=== PATIENT | male | born 1995 | race Caucasian/White ===

== ENCOUNTER 2018-03-18 09:41 | Day surgery (SDC) | payer OTHER ==
[~2018-03-18 09:41] MED LIST: SUCCINYLCHOLINE CHLORIDE 100 MG/5 ML SYG IV
[2018-03-18] MEDS ORDERED: MIDAZOLAM 1 MG/ML 2 ML INJ (12:27)
[2018-03-18] MEDS ORDERED: PROPOFOL 20 ML ×2 (12:27→13:20)
[2018-03-18] MEDS ORDERED: ROPIVACAINE 0.2% 20 ML VIAL (12:27)
[2018-03-18] MEDS ORDERED: ROCURONIUM 50 MG INJ ×2 (12:27→13:20)
[2018-03-18] MEDS ORDERED: FENTAnyl 50 MCG/ML VIAL (12:27)
[2018-03-18] MEDS ORDERED: KETOROLAC 30 MG INJ (12:30)
[2018-03-18] MEDS ORDERED: METOCLOPRAMIDE 10 MG INJ (12:30)
[2018-03-18] MEDS ORDERED: ONDANSETRON 4 MG INJ ×2 (12:30→13:57)
[2018-03-18] MEDS ORDERED: CEFAZOLIN 1 GM INJ ×2 (12:30→13:19)
[2018-03-18] MEDS ORDERED: DEXAMETHASONE 4 MG/ML 1 ML INJ ×2 (12:30→13:57)
[2018-03-18] MEDS ORDERED: BUPIVACAINE 0.25% (MPF) 30 ML INJ (12:45)
[2018-03-18] MEDS ORDERED: HYDROmorphONE 1 MG/5 ML IV SYRINGE IV ×3 (13:00)
[2018-03-18] MEDS ORDERED: OXYCODONE/ACETAMINOPHEN (5/325) TAB PO ×2 (13:00)
[2018-03-18] MEDS ORDERED: MEPERIDINE 25 MG INJ IV (13:00)
[2018-03-18] MEDS ORDERED: ONDANSETRON 4 MG INJ IV (13:00)
[2018-03-18] MEDS ORDERED: CEFAZOLIN 2 GM/50 ML (PMX) 50 ML IVPB (13:00)
[2018-03-18] MEDS ORDERED: hydrALAzine 20 MG INJ IV ×2 (13:00→14:30)
[2018-03-18] MEDS ORDERED: SOD CHLORIDE 0.9% 1,000 ML IV (13:00)
[2018-03-18] MEDS ORDERED: DIPHENHYDRAMINE 50 MG INJ IV (13:00)
[2018-03-18] MEDS ORDERED: METOCLOPRAMIDE 10 MG INJ IV (13:00)
[2018-03-18] MEDS ORDERED: EPHEDrine SULFATE 50 MG/5 ML SYG IV (13:00)
[2018-03-18] MEDS ORDERED: FENTAnyl 50 MCG/ML VIAL IV ×3 (13:00)
[2018-03-18] MEDS ORDERED: ROPIVACAINE 0.5 % 30 ML VIAL (13:16)
[2018-03-18] MEDS ORDERED: AMPICILLIN/SULB 3 GM/NS (PMX) 100 ML IVPB (13:41)
[2018-03-18] MEDS ORDERED: SUGAMMADEX SODIUM 200 MG/2 ML VIAL IV (13:57)
[2018-03-18] MEDS: LABETALOL HCL 20MG INJ IV (14:27)
[2018-03-18] MEDS ORDERED: HYDROCODONE/APAP (5/325) TAB PO (14:30)
[2018-03-18] MEDS ORDERED: HYDROmorphONE 0.5 MG/0.5 ML SYG (14:54)
[2018-03-18] MEDS: HYDROmorphONE 0.5 MG/0.5 ML SYG IV (15:39)
== END 2018-03-18 15:55 | disposition home or self-care (01) ==
LOC: SDS 09:41
DX: K80.10 Calculus of gallbladder with chronic cholecystitis without obstruction (principal); E66.9 Obesity, unspecified; Z68.42 Body mass index [BMI] 45.0-49.9, adult
CPT/HCPCS: 47562; 88304